=== PATIENT | female | born 1965 | race Caucasian/White ===

== ENCOUNTER → 2019-10-07 | Outpatient (CLI) | payer BC ==
[2019-10-07 11:03] LABS: Basophils % (A) 0 %; Eosinophils # (A) 0.2 k/uL (0-0.7); Eosinophils % (A) 3 %; HGB 12.2 gm/dL (11.4-16.0); Lymphocytes # (A) 2.3 k/uL (1.0-4.8); Lymphocytes % (A) 31 %; MCH 31.5 pg (25.0-35.0); MCV 98.4 fL (80.0-100.0); Mean Platelet Volume 7.8; Monocytes # (A) 0.3 k/uL (0-1.0); Monocytes % (A) 4 %; Neutrophils # (A) 4.4 k/uL (1.3-7.7); Neutrophils % (A) 59 %; Platelet Count 268 k/uL (150-450); RBC 3.86 m/uL (3.80-5.40); RDW 12.7 % (11.5-15.5); WBC 7.5 k/uL (3.8-10.6)
== END | disposition home or self-care (01) ==
LOC: LABPAT 10:16
PROVIDERS: ATTEND Obstetrics & Gynecology
DX: Z01.812 Encounter for preprocedural laboratory examination (principal); N93.8 Other specified abnormal uterine and vaginal bleeding; N84.0 Polyp of corpus uteri
CPT/HCPCS: 36415; 85025

== ENCOUNTER 2019-10-14 07:43 | Day surgery (SDC) | payer BC ==
[2019-10-09 15:33] VITALS: BMI 23.1
[~2019-10-14 07:43] MED LIST: DEXAMETHASONE SOD PHOSPHATE 10 MG/ML 1 ML VIAL IV ONE; HYDROmorphone 0.5 MG/0.5 ML SYRINGE IVP PRN; LACTATED RINGERS 1,000 ML IV SCH; LIDOCAINE 1% 20 ML VIAL (10MG/ML) FOR IV START INTRADERMA PRN; ONDANSETRON 4 MG/2 ML VIAL IVP ONE; Pre Op ABX Message 1 EACH MISC MISCELLANE ONE; SCOPOLAMINE 1.5MG/72HR PATCH TRANSDERM ONE
[2019-10-14] MEDS ORDERED: KETOROLAC 30 MG/ML 1 ML VIAL ONE (09:23)
[2019-10-14] MEDS ORDERED: MIDAZOLAM 2 MG/2 ML VIAL ONE (09:23)
[2019-10-14] MEDS ORDERED: fentaNYL (PF) 50 MCG/ML 2 ML AMP ONE (09:23)
[2019-10-14] MEDS ORDERED: LIDOCAINE 1% INJ 10MG/ML (20 ML MDV) ONE (09:23)
[2019-10-14] MEDS ORDERED: PROPOFOL 10 MG/ML 20 ML VIAL IV ONE (09:23)
[2019-10-14] MEDS ORDERED: LIDOCAINE 1%-EPI 1:100,000 20 ML VIAL SUBMUCOSAL ONE (09:45)
--- NOTE | 2019-10-14 10:20 | P.OP ---
Date of Procedure: 10/14/19 Preoperative Diagnosis: Menometrorrhagia Endometrial polyp on ultrasound Postoperative Diagnosis: Menometrorrhagia No evidence of endometrial polyp on hysteroscopy. Procedure(s) Performed: Diagnostic hysteroscopy, dilation and curettage, NovaSure endometrial ablation Anesthesia: MAC Surgeon: Shasta Bravo Estimated Blood Loss (ml): 5 Urine output (ml): 300 Pathology: other (Endometrial curettings) Condition: stable Disposition: PACU Operative Findings: Fluffy endometrium with no evidence of intracavitary lesion consistent with endometrial polyp. I lateral tubal ostia were visualized. Description of Procedure: After the patient was met in the preoperative holding area and all questions were answered, she was taken to the operating room where anesthetic was administered without incident. Appropriate timeout procedure was undertaken. Exam under anesthesia was performed. The bladder was drained for approximately 300 mL of clear urine. Speculum was placed in the vagina and the cervix was grasped anteriorly with a single-tooth tenaculum. Paracervical block with Xylocaine plus epinephrine was placed. Uterus was sounded to 7 cm. The cervix was dilated to allow for passage of the diagnostic hysteroscope. The hysteroscope was introduced. There was some blood and debris in the uterine cavity however after this cleared there was no definitive evidence of a endometrial polyp. Hysteroscope was removed and the cervix was further dilated to allow for passage of a sharp banjo curet. The endometrium was circumferentially curettaged and the specimen was handed off for pathology. The the NovaSure ablation device was then introduced into the uterus. We had multiple technical issues with the device itself. With the initial handpiece the unit indicated the array was not deployed however the handpiece 6 self indicated a uterine width of 3.5 cm and the device was completely deployed. The device was removed and the exterior leave the deployment of the array was confirmed. Unit was swapped out on however the same issue was encountered. A second hand device was then opened. This was inserted in the uterus at the same measurements which were a length of 4.5 cm and a width of 3.7 cm. With this dev ice the cavity assessment test did not pass. The seal was good. The the device was removed and the hysteroscope was reintroduced to confirm that no perforation was noted. Excellent visualization of the entire uterine cavity with good distention was noted on the with no concern whatsoever for uterine perforation. A third handpiece was therefore utilized and deployed with the same measurements of a length of 4.5 cm a width of 3.7 cm. The device cavity assessment test was immediately passed with this handpiece and the treatment cycle commenced. Power was 92 W of the treatment cycle was 56 seconds. Following cessation of the treatment cycle this device was removed the hysteroscope was reintroduced and excellent circumferential desiccation of the cavity was appreciated. All instruments were then removed from the vagina and the cervix was observed and no active bleeding was noted. The patient was then awoken from anesthetic and transported recovery area in stable condition. All counts reported to me as correct by the operating room staff.
[2019-10-14 10:22] VITALS: TEMP 97.1
[2019-10-14 11:16] VITALS: BP 130/72; PULSE 59; RESP 16
== END 2019-10-14 11:51 | disposition home or self-care (01) ==
LOC: OR 07:43
PROVIDERS: ATTEND Obstetrics & Gynecology
DX: N92.1 Excessive and frequent menstruation with irregular cycle (principal); Z90.49 Acquired absence of other specified parts of digestive tract; Z82.49 Family history of ischemic heart disease and other diseases of the circulatory system
CPT/HCPCS: 81025; 88305; 58563; J2250; J1100; J2405; J2001; J3010; J1885; J2704

== ENCOUNTER → 2021-07-01 | Outpatient (CLI) | payer BC ==
--- NOTE | 2021-07-04 10:55 | MM ---
Reason for exam: screening (asymptomatic). Last mammogram was performed 1 year and 3 months ago. History: Patient is postmenopausal. Taking hormonal contraceptives. Taking estrogen for 1 year beginning at age 56. Taking progesterone for 1 year beginning at age 56. Physical Findings: A clinical breast exam by your physician is recommended on an annual basis and results should be correlated with mammographic findings. MG Screening Mammo w CAD Bilateral CC and MLO view(s) were taken. XCCL view(s) were taken of the left breast. Prior study comparison: March 16, 2020, mammogram, performed at [facility]. November 11, 2018, mammogram, performed at [facility]. The breast tissue is heterogeneously dense. This may lower the sensitivity of mammography. There is no discrete abnormality. No significant changes when compared with prior studies. ASSESSMENT: Negative, BI-RAD 1 RECOMMENDATION: Routine screening mammogram of both breasts in 1 year.
== END | disposition home or self-care (01) ==
LOC: RADMAMWWP 08:16
PROVIDERS: ATTEND Obstetrics & Gynecology
DX: Z12.31 Encounter for screening mammogram for malignant neoplasm of breast (principal); Z78.0 Asymptomatic menopausal state
CPT/HCPCS: 77067

== ENCOUNTER → 2023-01-04 | Outpatient (CLI) | payer MEDICAID ==
--- NOTE | 2023-01-05 18:27 | MM ---
Reason for Exam: Screening (asymptomatic). Last mammogram was performed 1 year(s) and 6 month(s) ago. Patient History: Menarche at age 16. First Full-Term at age 29. Postmenopausal. Currently using Estrogen, beginning at age 56 for 1 year. Currently using Progesterone, beginning at age 56 for 1 year. Currently using Hormonal Contraceptives. Risk Values: Mendy 5 year model risk: 1.2%. NCI Lifetime model risk: 8.1%. Prior Study Comparison: 11/11/2018 Screening Mammogram, [facility]. 03/16/2020 Screening Mammogram, [facility]. 07/01/2021 Bilateral Screening Mammogram, [facility]. Tissue Density: The breast tissue is heterogeneously dense. This may lower the sensitivity of mammography. Findings: Analyzed By CAD. There is no suspicious group of microcalcifications or new suspicious mass in either breast. Overall Assessment: Negative, BI-RAD 1 Management: Screening Mammogram of both breasts in 1 year. . Patient should continue monthly self-breast exams. A clinical breast exam by your physician is recommended on an annual basis. This exam should not preclude additional follow-up of suspicious palpable abnormalities. Note on Mendy scores and lifetime risk: 1. A Mendy score greater than 3% is considered moderate risk. If this is the case, consider specialist referral to assess eligibility for a risk reducing agent. 2. If overall lifetime risk for the development of breast cancer is 20% or higher, the patient may qualify for future screening with alternating mammogram and breast MRI. Electronically signed and approved by: Rudy Escobedo M.D. Radiologist
== END | disposition home or self-care (01) ==
LOC: RADMAMWWP 15:17
PROVIDERS: ATTEND Obstetrics & Gynecology
DX: Z12.31 Encounter for screening mammogram for malignant neoplasm of breast (principal); Z78.0 Asymptomatic menopausal state
CPT/HCPCS: 77063; 77067

== ENCOUNTER → 2024-03-03 | Outpatient (CLI) | payer MEDICAID ==
--- NOTE | 2024-03-09 15:24 | MM ---
Reason for Exam: Screening (asymptomatic). Last mammogram was performed 1 year(s) and 2 month(s) ago. Patient History: Menarche at age 16. First Full-Term at age 29. Postmenopausal. Patient has history of breast feeding. Estrogen, from age 56 until age 58. Progesterone, from age 56 until age 58. Patient used Hormonal Contraceptives for 10 years. Risk Values: Mendy 5 year model risk: 1.4%. NCI Lifetime model risk: 7.8%. Prior Study Comparison: 11/11/2018 Screening Mammogram, [facility]. 03/16/2020 Screening Mammogram, [facility]. 07/01/2021 Bilateral Screening Mammogram, [facility]. 01/04/2023 Bilateral MG 3D screening mammo w/cad, [facility]. Tissue Density: The breasts are heterogeneously dense, which may obscure small masses. Findings: Analyzed By CAD. The pattern is symmetrical. There is some vague distortion in the upper outer left breast on craniocaudal and mediolateral oblique position. Findings appear to be related to summation density. Additional workup is recommended for confirmation. Right breast:No suspicious groups of microcalcifications, spiculated or lobular masses, architectural distortion or other secondary signs of malignancy are mammographically apparent. Overall Assessment: Incomplete: need additional imaging evaluation, BI-RAD 0 Management: Diagnostic Mammogram of the left breast. A negative mammogram report should not preclude additional follow up of suspicious palpable abnormalities. Patient should continue monthly self breast exam. A clinical breast exam by your physician is recommended on an annual basis and results should be correlated with mammographic findings. Note on Mendy scores and lifetime risk: 1. A Mendy score greater than 3% is considered moderate risk. If this is the case, consider specialist referral to assess eligibility for a risk reducing agent. 2. If overall lifetime risk for the development of breast cancer is 20% or higher, the patient may qualify for future screening with alternating mammogram and breast MRI. Electronically signed and approved by: Chris Moore D.O. Radiologis
== END | disposition home or self-care (01) ==
LOC: RADMAMWWP 07:49
PROVIDERS: ATTEND Obstetrics & Gynecology
DX: Z12.31 Encounter for screening mammogram for malignant neoplasm of breast (principal); R92.333 Mammographic heterogeneous density, bilateral breasts; Z78.0 Asymptomatic menopausal state
CPT/HCPCS: 77063; 77067

== ENCOUNTER → 2024-03-12 | Outpatient (CLI) | payer MEDICAID ==
--- NOTE | 2024-03-12 08:15 | MM ---
Reason for Exam: Clinical finding. Last screening mammogram was performed less than 1 month ago. Patient History: Menarche at age 16. First Full-Term at age 29. Postmenopausal. Patient has history of breast feeding. Estrogen, from age 56 until age 58. Progesterone, from age 56 until age 58. Patient used Hormonal Contraceptives for 10 years. Risk Values: Mendy 5 year model risk: 1.4%. NCI Lifetime model risk: 7.8%. Prior Study Comparison: 07/01/2021 Bilateral Screening Mammogram, [facility]. 01/04/2023 Bilateral MG 3D screening mammo w/cad, [facility]. 03/03/2024 Bilateral MG 3D screening mammo w/cad, [facility]. Tissue Density: Left: The breasts are heterogeneously dense, which may obscure small masses. Findings: Analyzed By CAD. Area of spiculation measuring approximately 1 cm does persist at the left 1:00 position approximately 6 cm from the nipple. Ultrasound recommended. Overall Assessment: Incomplete: need additional imaging evaluation, BI-RAD 0 Management: Diagnostic Breast Ultrasound of the left breast. . Results were given to the patient verbally at the time of exam. Patient should continue monthly self-breast exams. A clinical breast exam by your physician is recommended on an annual basis. This exam should not preclude additional follow-up of suspicious palpable abnormalities. Note on Mendy scores and lifetime risk: 1. A Mendy score greater than 3% is considered moderate risk. If this is the case, consider specialist referral to assess eligibility for a risk reducing agent. 2. If overall lifetime risk for the development of breast cancer is 20% or higher, the patient may qualify for future screening with alternating mammogram and breast MRI. Electronically signed and approved by: Luis Han M.D. Radiologis
--- NOTE | 2024-03-12 08:48 | USB ---
Reason for Exam: Additional evaluation requested from abnormal screening. Patient History: Menarche at age 16. First Full-Term at age 29. Postmenopausal. Patient has history of breast feeding. Estrogen, from age 56 until age 58. Progesterone, from age 56 until age 58. Patient used Hormonal Contraceptives for 10 years. Risk Values: Mendy 5 year model risk: 1.4%. NCI Lifetime model risk: 7.8%. Technique: Method: Targeted. Prior Study Comparison: 07/01/2021 Bilateral Screening Mammogram, [facility]. 01/04/2023 Bilateral MG 3D screening mammo w/cad, [facility]. 03/03/2024 Bilateral MG 3D screening mammo w/cad, [facility]. Findings: The upper outer quadrant of the left breast, the axilla of the left breast and the retroareolar of the left breast were scanned. There is a 6 x 6 mm mass at the left 2:00 position 8 cm from the nipple. Tissue diagnosis is recommended with correlation made to postbiopsy clip placement in order to asure correlation with the area of spiculation on mammography. Overall Assessment: Suspicious, BI-RAD 4 Management: Ultrasound Core Biopsy of the left breast. A clinical breast exam by your physician is recommended on an annual basis and results should be correlated with mammographic findings. This exam should not preclude additional follow-up of suspicious palpable abnormalities. Results were given to the patient verbally at the time of exam. Electronically signed and approved by: Luis Han M.D. Radiologis
== END | disposition home or self-care (01) ==
LOC: RADMAMWWP 07:41
PROVIDERS: ATTEND Obstetrics & Gynecology
DX: R92.8 Other abnormal and inconclusive findings on diagnostic imaging of breast (principal); R92.332 Mammographic heterogeneous density, left breast; Z78.0 Asymptomatic menopausal state
CPT/HCPCS: 77061; 77065

== ENCOUNTER → 2024-04-10 | Outpatient (CLI) | payer MEDICAID ==
--- NOTE | 2024-05-06 08:58 | MM ---
Reason for Exam: Post Procedure Mammogram. Last screening mammogram was performed 1 month(s) ago. Patient History: Menarche at age 16. First Full-Term at age 29. Postmenopausal. Patient has history of breast feeding. Estrogen, from age 56 until age 58. Progesterone, from age 56 until age 58. Patient used Hormonal Contraceptives for 10 years. Risk Values: Mendy 5 year model risk: 1.4%. NCI Lifetime model risk: 7.8%. Prior Study Comparison: 01/04/2023 Bilateral MG 3D screening mammo w/cad, [facility]. 03/03/2024 Bilateral MG 3D screening mammo w/cad, [facility]. 03/12/2024 Left US breast workup limited LT, [facility]. 03/12/2024 Left MG 3D work up w/cad LT, [facility]. Tissue Density: Left: The breasts are heterogeneously dense, which may obscure small masses. Pathology Description: Location: 2 o'clock. Marker Left Behind. Cores: 5 The procedure of ultrasound guided core biopsy was explained to the patient. Benefits, alternatives, and risks were discussed. An informed consent was then obtained. The patient was placed in supine positioning for imaging and for the procedure. The overlying skin was prepped and draped in usual sterile fashion. Lidocaine buffered with bicarbonate was used as anesthetic into the skin and subcutaneous tissue up to area of concern in the left 2:00 breast. A josephine was made with surgical scalpel. Under ultrasound guidance, a 12-gauge vacuum assisted biopsy gun device was used to obtain 5 core samples. Following this, a biopsy clip was left in lesion. The patient tolerated the procedure well without any immediate complication. The patient was kept in the radiology department for short stay after the procedure and then discharged home in stable condition. Postprocedure mammogram: The patient was transferred to mammography for physician ordered post procedure mammogram for clip placement verification. Impression: Successful, uncomplicated ultrasound guided core biopsy of area of concern in the left 2:00 breast, full pathology results to follow. Pathology Results: Pathology and radiology were reviewed. Findings are discordant with mammogram, concordant with ultrasound. LEFT BREAST, 2:00 POSITION, 8 CM FROM NIPPLE, US GUIDED CORE BIOPSY: Sclerotic and hypocellular fibrosis with chronic inflammation. See note. Notes A 03/12/24 mammogram states there is a 1 cm spiculated area at the left breast, 1:00 position. A 03/12/24 ultrasound of left breast report states there is a 6 x 6 mm mass at the left breast 2:00 position, 8 cm from the nipple. The findings seen may represent a scar. Imaging correlation is suggested and re-biopsy can be performed if malignancy is suspected. Upon request, results were discussed with Dr. Filippo Yost on 04-17-24 at 11:50 am. Overall Assessment: Suspicious, BI-RAD 4 Assessment: MG diagnostic mammo LT wo CAD. - Left: Suspicious, BI-RAD 4. Management: Surgical Consultation of the left breast. Electronically signed and approved by: Luis Han M.D. Radiologis
== END | disposition home or self-care (01) ==
LOC: RADMAMWWP 11:10
PROVIDERS: ATTEND Surgery
DX: R92.8 Other abnormal and inconclusive findings on diagnostic imaging of breast (principal); Z78.0 Asymptomatic menopausal state; Z92.0 Personal history of contraception
CPT/HCPCS: 77063; 77065; 77067

== ENCOUNTER → 2024-04-10 | Day surgery (SDC) | payer MEDICAID ==
--- NOTE | 2024-05-06 09:04 | USB ---
EXAM: US biopsy breast VAD LT DATE OF EXAM: 04/28/2024 COMPARISON: 01/04/2023 Bilateral MG 3D screening mammo w/cad, [facility]. 03/03/2024 Bilateral MG 3D screening mammo w/cad, [facility]. 03/12/2024 Left US breast workup limited LT, [facility]. 03/12/2024 Left MG 3D work up w/cad LT, [facility]. DESCRIPTION: The procedure of ultrasound guided core biopsy was explained to the patient. Benefits, alternatives, and risks were discussed. An informed consent was then obtained. The patient was placed in supine positioning for imaging and for the procedure. The overlying skin was prepped and draped in usual sterile fashion. Lidocaine buffered with bicarbonate was used as anesthetic into the skin and subcutaneous tissue up to area of concern in the left 2:00 breast. A josephine was made with surgical scalpel. Under ultrasound guidance, a 12-gauge vacuum assisted biopsy gun device was used to obtain 5 core samples. Following this, a biopsy clip was left in lesion. The patient tolerated the procedure well without any immediate complication. The patient was kept in the radiology department for short stay after the procedure and then discharged home in stable condition. Postprocedure mammogram: The patient was transferred to mammography for physician ordered post procedure mammogram for clip placement verification. Impression: Successful, uncomplicated ultrasound guided core biopsy of area of concern in the left 2:00 breast, full pathology results to follow. Pathology Results: REPEAT PROCEDURE Pathology and radiology were reviewed. Findings are discordant with mammogram, concordant with ultrasound. LEFT BREAST, 2:00 POSITION, 8 CM FROM NIPPLE, US GUIDED CORE BIOPSY: Sclerotic and hypocellular fibrosis with chronic inflammation. See note. Notes A 03/12/24 mammogram states there is a 1 cm spiculated area at the left breast, 1:00 position. A 03/12/24 ultrasound of left breast report states there is a 6 x 6 mm mass at the left breast 2:00 position, 8 cm from the nipple. The findings seen may represent a scar. Imaging correlation is suggested and re-biopsy can be performed if malignancy is suspected. Upon request, results were discussed with Dr. Filippo Yost on 04-17-24 at 11:50 am. Overall Assessment: Suspicious, BI-RAD 4 Assessment: MG diagnostic mammo LT wo CAD. - Left: Suspicious, BI-RAD 4. Management: Surgical Consultation of the left breast. ERIC
== END ==
LOC: RADUSWWP 10:04
PROVIDERS: ATTEND Surgery
DX: N60.32 Fibrosclerosis of left breast (principal); N61.0 Mastitis without abscess; R92.8 Other abnormal and inconclusive findings on diagnostic imaging of breast
CPT/HCPCS: 88305

== ENCOUNTER → 2024-07-07 | Outpatient (CLI) | payer MEDICAID ==
--- NOTE | 2024-07-07 08:42 | MM ---
Reason for Exam: Follow-up at short interval from prior study. Last screening mammogram was performed 4 month(s) ago. Patient History: Menarche at age 16. First Full-Term at age 29. Postmenopausal. Patient has history of breast feeding. Estrogen, from age 56 until age 58. Progesterone, from age 56 until age 58. Patient used Hormonal Contraceptives for 10 years. 04/10/2024, US biopsy breast VAD LT on the Left side. Risk Values: Mendy 5 year model risk: 1.6%. NCI Lifetime model risk: 9.1%. Prior Study Comparison: 11/11/2018 Screening Mammogram, [facility]. 03/16/2020 Screening Mammogram, [facility]. 07/01/2021 Bilateral Screening Mammogram, [facility]. 01/04/2023 Bilateral MG 3D screening mammo w/cad, [facility]. 03/03/2024 Bilateral MG 3D screening mammo w/cad, [facility]. 03/12/2024 Left MG 3D work up w/cad LT, [facility]. 04/10/2024 Left MG diagnostic mammo LT wo CAD., [facility]. Tissue Density: Left: The breasts are heterogeneously dense, which may obscure small masses. Findings: Analyzed By CAD. Torsion persists upper outer quadrant left breast approximately 7 to 8 cm from the nipple. Ultrasound recommended. Prior biopsy far posterior upper outer left breast. No new areas of distortion or masses seen. No suspicious micro-calcifications. Overall Assessment: Incomplete: need additional imaging evaluation, BI-RAD 0 Management: Diagnostic Breast Ultrasound of the left breast. . Results were given to the patient verbally at the time of exam. Patient should continue monthly self-breast exams. A clinical breast exam by your physician is recommended on an annual basis. This exam should not preclude additional follow-up of suspicious palpable abnormalities. Note on Mendy scores and lifetime risk: 1. A Mendy score greater than 3% is considered moderate risk. If this is the case, consider specialist referral to assess eligibility for a risk reducing agent. 2. If overall lifetime risk for the development of breast cancer is 20% or higher, the patient may qualify for future screening with alternating mammogram and breast MRI. [facility], Workstation: 3, 07/07/2024 8:39 AM. Electronically signed and approved by: Luis Han M.D. Radiologis
--- NOTE | 2024-07-07 09:06 | USB ---
Reason for Exam: Follow-up at short interval from prior study. Patient History: Menarche at age 16. First Full-Term at age 29. Postmenopausal. Patient has history of breast feeding. Estrogen, from age 56 until age 58. Progesterone, from age 56 until age 58. Patient used Hormonal Contraceptives for 10 years. 04/10/2024, US biopsy breast VAD LT on the Left side. Risk Values: Mendy 5 year model risk: 1.6%. NCI Lifetime model risk: 9.1%. Technique: Method: Targeted. Prior Study Comparison: 03/03/2024 Bilateral MG 3D screening mammo w/cad, [facility]. 03/12/2024 Left MG 3D work up w/cad LT, [facility]. 04/10/2024 Left MG diagnostic mammo LT wo CAD., [facility]. Findings: The upper outer quadrant of the left breast, the axilla of the left breast and the retroareolar of the left breast were scanned. Recently biopsied Mass density at the left 2:00 position has enlarged in the interval since prior study. Currently the mass measures 1.0 x 1.0 cm versus 0.7 x 0.5 cm previously. Surgical excision is recommended. Overall Assessment: Suspicious, BI-RAD 4 Management: Surgical Consultation of both breasts. A clinical breast exam by your physician is recommended on an annual basis and results should be correlated with mammographic findings. This exam should not preclude additional follow-up of suspicious palpable abnormalities. Results were given to the patient verbally at the time of exam. [facility], , 07/07/2024 9:03 AM. Electronically signed and approved by: Luis Han M.D. Radiologis
== END | disposition home or self-care (01) ==
LOC: RADMAMWWP 07:59
PROVIDERS: ATTEND Surgery
DX: R92.332 Mammographic heterogeneous density, left breast (principal); R92.8 Other abnormal and inconclusive findings on diagnostic imaging of breast; Z78.0 Asymptomatic menopausal state
CPT/HCPCS: 77061; 77065

== ENCOUNTER 2024-07-31 09:18 | Day surgery (SDC) | payer MEDICAID ==
[~2024-07-31 09:18] MED LIST changes: -DEXAMETHASONE SOD PHOSPHATE 10 MG/ML 1 ML VIAL IV ONE; -LACTATED RINGERS 1,000 ML IV SCH; -LIDOCAINE 1% 20 ML VIAL (10MG/ML) FOR IV START INTRADERMA PRN; -ONDANSETRON 4 MG/2 ML VIAL IVP ONE; -Pre Op ABX Message 1 EACH MISC MISCELLANE ONE; -SCOPOLAMINE 1.5MG/72HR PATCH TRANSDERM ONE
[2024-07-31] MEDS: IV FLUID CONTINUATION 1,000 ML IV ONE (10:19)
[2024-07-31] MEDS: LACTATED RINGERS 1,000 ML IV SCH (10:26)
[2024-07-31] MEDS: DEXAMETHASONE SOD PHOSPHATE 4 MG/ML 1 ML VIAL IV ONE (10:26)
[2024-07-31] MEDS: ONDANSETRON 4 MG/2 ML VIAL IVP ONE (10:26)
[2024-07-31] MEDS: ACETAMINOPHEN TAB 500 MG TAB PO PRN (10:26)
[2024-07-31] MEDS: ALPRAZolam 0.5 MG TAB PO STA (10:33)
[2024-07-31 10:42] LABS: HCT 38.7 % (34.0-46.0); HGB 12.5 gm/dL (11.4-16.0); MCH 32.2 pg (25.0-35.0); MCHC 32.2 g/dL (31.0-37.0); MCV 99.9 fL (80.0-100.0); Mean Platelet Volume 7.7; Platelet Count 284 k/uL (150-450); RBC 3.87 m/uL (3.80-5.40); RDW 12.5 % (11.5-15.5); WBC 4.4 k/uL (3.8-10.6)
[2024-07-31] MEDS: BUPIVACAINE (PF) 0.25% 30 ML VIAL SQ ONE ×3 (11:49→13:31)
--- NOTE | 2024-07-31 12:07 | P.GSHP ---
History of Present Illness H&P Date: 07/31/24 Chief Complaint: Abnormal mammogram and ultrasound 59-year-old female seen in the office previously for a breast workup. Patient's case has been somewhat complicated with some degree of discordance between the studies performed. Initial mammogram showed an area of distortion. She then had ultrasound as part of that workup showing a small abnormality that was biopsied by ultrasound core biopsy. These findings were benign however the ultrasound abnormality was not the area seen on mammography after clip was deployed. Patient then went for 3-month repeat left breast workup. Area of distortion on mammogram left breast per radiology persists. Area of recent biopsy by ultrasound has enlarged in size. Case was reviewed with radiology on a few occasions. She was scheduled for left breast wire localization biopsy today. Today I spoke with the radiologist twice. Discussion centered around whether to biopsy only the ultrasound abnormality where the lesion has enlarged or go after both the ultrasound abnormality and the area of distortion on mammogram. Radiologist feels that the area of distortion is subtle and not easily amenable to wire localization. He is comfortable and advising a 6-month follow-up on this mammogram abnormality. Past Medical History Past Medical History: Osteoarthritis (OA) Additional Past Medical History / Comment(s): left breast lump History of Any Multi-Drug Resistant Organisms: None Reported Past Surgical History: Appendectomy, Uterine Ablation Additional Past Surgical History / Comment(s): colonoscopy Past Anesthesia/Blood Transfusion Reactions: No Reported Reaction Smoking Status: Never smoker - Past Family History Mother Family Medical History: Cancer Additional Family Medical History / Comment(s): oral cancer Medications and Allergies Home Medications Medication Instructions Recorded Confirmed Type No Known Home Medications 10/09/19 07/31/24 History Allergies Allergy/AdvReac Type Severity Reaction Status Date / Time No Known Allergies Allergy Verified 07/31/24 10:09 Surgical - Exam Vital Signs Temp Pulse Resp BP Pulse Ox 97.0 F L 67 16 113/56 97 07/31/24 10:13 07/31/24 10:13 07/31/24 10:13 07/31/24 10:13 07/31/24 10:13 Physical exam: General: Well-developed, well-nourished HEENT: Normocephalic, sclerae nonicteric Right breast: No masses, no adenopathy Left breast: Prior scar noted, subtle fullness at previous biopsy site, no adenopathy Abdomen: Nontender, nondistended Extremities: No edema Neuro: Alert and oriented Results - Labs 07/31/24 10:20 Assessment and Plan (1) Abnormal ultrasound of breast Narrative/Plan: Will proceed with left breast wire localization biopsy via ultrasound guidance of previously biopsied ultrasound abnormality. Will plan follow-up diagnostic mammogram and left breast ultrasound 6 months postbiopsy if benign findings encountered. This was discussed with patient by both myself and the radiologist in detail. Risks of bleeding, infection, scarring, missed malignancy, seroma, possible need for further surgery reviewed. She understands and wishes to proceed. Current Visit: Yes Status: Acute Code(s): R92.8 - OTH ABN AND INCONCLUSIVE FINDINGS ON DX IMAGING OF BREAST SNOMED Code(s): 66059719703371516
[2024-07-31] MEDS: LIDOCAINE 1% INJ 10MG/ML (20 ML MDV) SQ ONE (12:10)
[2024-07-31] MEDS: SODIUM BICARB 8.4% 50 ML VIAL (1 MEQ/ML) MISCELLANE ONE (12:10)
[2024-07-31] MEDS: HEPARIN SODIUM,PORCINE 5,000 UNIT/ML 1 ML VIAL SQ PRN (12:37)
[2024-07-31] MEDS ORDERED: fentaNYL (PF) 50 MCG/ML 2 ML AMP ONE (12:40)
[2024-07-31] MEDS ORDERED: ePHEDrine 50 MG/ML 1 ML VIAL ONE (12:40)
[2024-07-31] MEDS ORDERED: KETOROLAC 15 MG/ML 1 ML VIAL ONE (12:40)
[2024-07-31] MEDS ORDERED: LIDOCAINE 1% INJ 10MG/ML (20 ML MDV) ONE (12:40)
[2024-07-31] MEDS ORDERED: PHENYLEPHRINE-0.9% NACL SYG 1,000 MCG/10 ML SYRINGE ONE (12:40)
[2024-07-31] MEDS ORDERED: PROPOFOL 10 MG/ML 20 ML VIAL IV ONE (12:40)
[2024-07-31] MEDS ORDERED: MIDAZOLAM 2 MG/2 ML VIAL ONE (12:40)
--- NOTE | 2024-07-31 13:48 | P.OP ---
Date of Procedure: 07/31/24 Procedure(s) Performed: PREOPERATIVE DIAGNOSIS: Abnormal left ultrasound POSTOPERATIVE DIAGNOSIS: Same PROCEDURE: Left breast wire localization biopsy SURGEON: Ritika EBL: 10 cc ANESTHESIA: General plus local COMPLICATIONS: None OPERATIVE PROCEDURE: Patient was placed on the operating room table in the supin e position. The patient's breast was prepped and draped in usual sterile fashion. A curvilinear incision was made adjacent to the wire entrance site at the 3:00 location posteriorly. I followed the wire down into the breast tissue. The breast tissue around the tip of the wire was fully excised using electrocautery. Majority of the specimen was obtained anteriorly per the preoperative mammogram showing the clip and density anterior to the wire. The specimen was sent for specimen radiogram. The clip was present within the specimen. The subcutaneous tissues were inspected. No bleeding was seen. The subcutaneous tissues were closed using 3-0 Vicryl sutures. The skin was closed using a running 4-0 Monocryl stitch. Skin glue and sterile dressings were applied. The specimen was painted the describes 6 colors. The posterior margin was painted both black and leila. DISPOSITION: Stable to recovery room
[2024-07-31 14:00] VITALS: TEMP 97.2
--- NOTE | 2024-07-31 14:07 | USB ---
EXAM: US breast localization LT DATE OF EXAM: 07/31/2024 COMPARISON: 07/07/2024 DESCRIPTION: Images are reviewed case was discussed with the referring physician. The prior ultrasound biopsy site which has increasing size of the targeted. The needle localization procedure with wire placement for surgical excision was explained to the patient. Benefits, alternatives, and risks were discussed. An informed consent was then obtained. A timeout was performed. The overlying skin was prepped in usual sterile fashion. Lidocaine was used as anesthetic into the skin and subcutaneous tissue up to the level of area of concern. A 5 cm needle was used. It was placed using a lateral approach under ultrasound guidance. Ultrasound images Show the needle to be in satisfactory position relative to the targeted area. Wire passes adjacent to the core marker posterior to the lesion. The wire was placed and the needle was withdrawn. The wire was fixed to patient's skin. Mammography post procedure was performed. The patient tolerated the procedure well without any immediate complication. The patient was kept in the radiology department for short stay after the procedure and then taken to surgery for surgical excision. Specimen: Biopsy marker and wire are identified in specimen mammogram. Both mammographic and ultrasound specimen evaluation was performed. Impression: 1. Successful needle localization with wire placement and surgical excision of biopsy marker. [facility], , 07/31/2024 2:05 PM Pathology Results: Benign LEFT BREAST, EXCISION: Fibrocystic change with columnar cell change, focal microcalcification, sclerotic fibrosis and biopsy site change. Negative for malignancy. All margins benign. Recommendation Follow up ultrasound of the left breast in 6 months. ERIC
[2024-07-31 15:04] VITALS: RESP 18
[2024-07-31 15:16] VITALS: BP 127/86; PULSE 76
[2024-07-31] MEDS ORDERED: ACETAMINOPHEN TAB 325 MG TAB PO SCH (18:00)
[2024-08-02] MEDS ORDERED: MELOXICAM 7.5 MG TAB PO SCH (09:00)
== END 2024-07-31 15:40 | disposition home or self-care (01) ==
LOC: OR 09:18
PROVIDERS: ATTEND Surgery
DX: N60.32 Fibrosclerosis of left breast (principal); M19.90 Unspecified osteoarthritis, unspecified site
CPT/HCPCS: 19125; 85027; 88307; 77065; 76098; 76999; 19285; J2250; J1644; J1100; J0690; J2405; J2003; J3010; J1885; J2704; J2371; J0665

== ENCOUNTER → 2025-03-05 | Outpatient (CLI) | payer MEDICAID ==
--- NOTE | 2025-03-05 07:57 | MM ---
Reason for Exam: Follow-up at short interval from prior study. Last screening mammogram was performed 12 month(s) ago. Patient History: Menarche at age 16. First Full-Term at age 29. Postmenopausal. Patient has history of breast feeding. Estrogen, from age 56 until age 58. Progesterone, from age 56 until age 58. Patient used Hormonal Contraceptives for 10 years. 07/31/2024, Benign US breast localization LT on the left side. 04/10/2024, US biopsy breast VAD LT on the Left side. Risk Values: Mendy 5 year model risk: 2.1%. NCI Lifetime model risk: 11.2%. Prior Study Comparison: 03/03/2024 Bilateral MG 3D screening mammo w/cad, [facility]. 03/12/2024 Left US breast workup limited LT, [facility]. 03/12/2024 Left MG 3D work up w/cad LT, [facility]. 04/10/2024 Left MG diagnostic mammo LT wo CAD., [facility]. 07/07/2024 Left US breast limited LT, [facility]. 07/07/2024 Left MG 3D diag mammo w/cad LT, [facility]. 07/31/2024 Left MG diagnostic mammo LT wo CAD., [facility]. Tissue Density: The breasts are heterogeneously dense, which may obscure small masses. Findings: Analyzed By CAD. Area of architectural distortion compatible with the position of the needle localization. No suspicious grouped calcifications. No dominant mass. Overall Assessment: Benign, BI-RAD 2 Management: Screening Mammogram of both breasts in 1 year. . Results were given to the patient verbally at the time of exam. Patient should continue monthly self-breast exams. A clinical breast exam by your physician is recommended on an annual basis. This exam should not preclude additional follow-up of suspicious palpable abnormalities. Note on Mendy scores and lifetime risk: 1. A Mendy score greater than 3% is considered moderate risk. If this is the case, consider specialist referral to assess eligibility for a risk reducing agent. 2. If overall lifetime risk for the development of breast cancer is 20% or higher, the patient may qualify for future screening with alternating mammogram and breast MRI. [facility], , 03/05/2025 7:54 AM. Electronically signed and approved by: Ming Caruso M.D. Radiologis
== END | disposition home or self-care (01) ==
LOC: RADMAMWWP 07:26
PROVIDERS: ATTEND Surgery
DX: R92.8 Other abnormal and inconclusive findings on diagnostic imaging of breast (principal); R92.333 Mammographic heterogeneous density, bilateral breasts; Z78.0 Asymptomatic menopausal state; Z92.0 Personal history of contraception
CPT/HCPCS: 77062; 77066